=== PATIENT | male | born 1995 | race Native Hawaiian/Other Pacific Islander ===

== ENCOUNTER 2019-02-15 13:40 | Emergency (ER) | payer OTHER ==
[~2019-02-15] VITALS: Ht 182.9 cm; Wt 90.7 kg
[2019-02-15 15:50] VITALS: BP 117/64; TEMP 97.9
== END 2019-02-15 15:53 | disposition home or self-care (01) ==
LOC: ED 13:40
DX: S46.811A Strain of other muscles, fascia and tendons at shoulder and upper arm level, right arm, initial encounter (principal); W19.XXXA Unspecified fall, initial encounter
CPT/HCPCS: 96372; 99283; J1885